=== PATIENT | female | born 1985 ===

== ENCOUNTER 2017-12-14 16:14 | Emergency (ER) | payer SELFPAY ==
[2017-12-14 16:14] VITALS: BMI 20.1
[2017-12-14 16:20] VITALS: BP 136/95; PULSE 103; RESP 16; TEMP 97.9; O2SAT 98
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
[2017-12-14 17:45] LABS: BASO % 0.5 % (0.0-2.0); EOS % 0.2 % (0.0-4.0); HEMOGLOBIN 16.1 g/dL (12.0-16.0); LYMPH # 2.3 K/uL (1.0-4.3); LYMPH % 36.2 % (20.0-40.0); MEAN CELL VOLUME 91.8 fl (81.0-99.0); MEAN CORPUSCULAR HEMOGLOBIN 31.2 pg (27.0-31.0); MEAN PLATELET VOLUME 9.8 fl (7.2-11.7); MONO # 0.5 K/uL (0.0-0.8); MONO % 7.3 % (0.0-10.0); NEUT # 3.6 K/uL (1.8-7.0); NEUT % 55.8 % (50.0-75.0); NRBC % 0.1 % (0.0-0.0); RBC 5.17 Mil/uL (3.80-5.20); RED CELL DISTRIBUTION WIDTH 13.7 % (11.5-14.5); WHITE BLOOD COUNT 6.4 K/uL (4.8-10.8)
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
[2017-12-14 17:52] LABS: URINE BILIRUBIN NEGATIVE (NEGATIVE); URINE CLARITY SLIGHT-CLOUDY (Clear); URINE COLOR STRAW (YELLOW); URINE GLUCOSE (UA) NEGATIVE (Normal)
[2017-12-14 17:53] LABS: URINE BLOOD NEGATIVE (NEGATIVE); URINE PROTEIN NEGATIVE (NEGATIVE)
[2017-12-14 17:54] LABS: SQUAMOUS EPITHIAL 1 /hpf (0-5); URINE LEUKOCYTE ESTERASE NEG Leu/uL (Negative)
[2017-12-14] MEDS ORDERED: Naproxen 500 MG TAB PO ONE (17:57)
[2017-12-14 18:06] LABS: ALB/GLOB RATIO 1.3 (1.0-2.1); ALBUMIN 5.3 g/dL (3.5-5.0); ALT/SGPT 40 U/L (9-52); AST/SGOT 33 U/L (14-36); BLOOD UREA NITROGEN 7 mg/dl (7-17); CALCIUM 9.8 mg/dL (8.4-10.2); GFR AFRICAN-AMERICAN > 60; GFR NON-AFRICAN AMERICAN > 60
[2017-12-14 18:16] LABS: BARBITURATES, UR NEGATIVE (NEGATIVE); BENZODIAZEPINES, UR NEGATIVE (NEGATIVE); OPIATES, UR NEGATIVE (NEGATIVE); PHENCYCLIDINE, UR NEGATIVE (NEGATIVE)
== END 2017-12-14 19:00 | disposition home or self-care (01) ==
LOC: H.ER 16:14
DX: F10.129 Alcohol abuse with intoxication, unspecified (principal); S39.91XA Unspecified injury of abdomen, initial encounter; S49.92XA Unspecified injury of left shoulder and upper arm, initial encounter; Y04.0XXA Assault by unarmed brawl or fight, initial encounter
CPT/HCPCS: 70450; 71250; 73030; 80053; 81003; 81025; 82948; 85025; 99283; G0480

== ENCOUNTER 2018-06-08 19:34 | Emergency (ER) | payer SELFPAY ==
[2018-06-08 19:34] VITALS: BMI 20.1
[2018-06-08 19:40] VITALS: BP 134/97; RESP 18; TEMP 98.4; O2SAT 99
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
[2018-06-08 20:09] VITALS: PULSE 100
--- NOTE | 2018-06-09 08:46 | CARD ---
APPROVED REPORT Date of service: 06/08/2018 <Conclusion> Normal sinus rhythm Normal ECG
== END 2018-06-08 20:54 ==
LOC: H.ER 19:34
DX: F10.129 Alcohol abuse with intoxication, unspecified (principal); Z88.0 Allergy status to penicillin